=== PATIENT | female | born 1995 | race Asian ===

== ENCOUNTER → 2024-10-17 09:21 | Outpatient (CLI) | payer OTHER, SELFPAY ==
--- NOTE | 2024-10-17 09:24 | DI.US.S_ITS ---
PROCEDURE: US PELVIC COMPLETE INDICATIONS: ABN VAGINAL DISCHARGE TECHNIQUE: Real-time scanning was performed of the pelvic organs, with image documentation. Additional endovaginal scanning was necessary due to incomplete visualization of the adnexal and endometrial structures by transabdominal scanning. COMPARISON: None. FINDINGS: Uterus: Uterus is retroverted and normal in size at 8.1 x 3.9 x 5.5 cm. The myometrium is heterogeneous. The endometrium measures 8.7 mm combined thickness. Heterogeneous endometrium without focal mass. Ovaries: The right ovary measures 3.7 x 1.2 x 1.4 cm, with a calculated ovarian volume of 3.2 cc. The left ovary measures 3.6 x 2.6 x 1.3 cm, with a calculated ovarian volume of 6.5 cc. The ovaries have a normal sonographic appearance. Less than 12 follicles can be seen in each ovary. No adnexal masses are seen. Other: No pathologic free abdominal or pelvic fluid. IMPRESSION: Endometrium is normal in thickness measuring 8.7 mm. Ovaries are normal in appearance. We strive to produce accurate, complete, and clear reports of imaging services. To assist us in improving patient care, this report was composed using standard report templates and voice recognition software. Therefore, it may contain abnormal punctuation, insertions and/or omissions. Occasional wrong-word or sound-alike substitutions may occur. Though we review the report and make efforts to correct it, we do recommend that the report be read carefully in proper context to recognize any text inaccuracies. Dictated by: Freddie Baker M.D. on 10/17/2024 at 10:50 Approved by: Freddie Baker M.D. on 10/17/2024 at 10:53
== END ==
LOC: US 09:22
DX: N89.8 Other specified noninflammatory disorders of vagina (principal)
CPT/HCPCS: 76830; 76856